=== PATIENT | female | born 1980 | race African-American/Black ===

== ENCOUNTER 2020-09-05 16:54 | Emergency (ER) | payer OTHER ==
[~2020-09-05] VITALS: Ht 162.6 cm; Wt 71.7 kg
== END 2020-09-05 21:22 | disposition home or self-care (01) ==
LOC: ER 16:54 → EMR PED 17:42 → ER 17:42
DX: G44.209 Tension-type headache, unspecified, not intractable (principal)

== ENCOUNTER 2021-02-13 21:59 | Emergency (ER) | payer OTHER ==
[~2021-02-13] VITALS: Ht 162.6 cm; Wt 74.8 kg
[2021-02-13] MEDS ORDERED: PEPCID AC20 MG PO (22:16)
[2021-02-13] MEDS ORDERED: AMOX-CLAV 875-1 EAC1 PO (22:16)
== END 2021-02-13 22:33 | disposition home or self-care (01) ==
LOC: ER 21:59
DX: J03.90 Acute tonsillitis, unspecified (principal)